=== PATIENT | female | born 1995 | race African-American/Black ===

== ENCOUNTER 2019-02-03 17:57 | Emergency (ER) | payer OTHER ==
[~2019-02-03] VITALS: Ht 162.6 cm; Wt 72.3 kg
[2019-02-03] MEDS ORDERED: NAPR250T4 PO (18:05)
--- NOTE | 2019-02-03 18:46 | REP ---
Right forearm two views : There is no fracture or dislocation. Mineralization and joint spaces are normal. There are no calcifications or foreign bodies. Impression: Negative right forearm . Electronically Signed by Benjamín Shultz MD 02/03/2019 06:38 P
[2019-02-03] MEDS ORDERED: [UNRECOGNIZED DRUG - CODE] XX (19:48)
[2019-02-03 19:55] VITALS: BP 118/67
== END 2019-02-03 19:57 | disposition home or self-care (01) ==
LOC: M ED 17:57
DX: M77.11 Lateral epicondylitis, right elbow (principal); Z79.899 Other long term (current) drug therapy

== ENCOUNTER 2019-05-29 09:04 | Emergency (ER) | payer OTHER ==
[~2019-05-29] VITALS: Ht 162.6 cm; Wt 68.2 kg
[~2019-05-29 09:04] MED LIST: NAPR250T4 PO; [UNRECOGNIZED DRUG - CODE] XX
[2019-05-29 09:51] LABS: BASO % 0.5 % (0.0-1.0); EOS # 0.1 10^3/uL (0.0-0.5); EOS % 0.8 % (0.0-3.0); HEMATOCRIT 36.1 % (36.0-47.0); HEMOGLOBIN 11.9 g/dl (12.0-15.5); LYMPH # 1.6 10^3/uL (1.5-5.0); LYMPH % 26.9 % (24.0-44.0); MEAN CORPUSCULAR HEMOGLOBIN 28.7 pg (27.0-33.0); MONO # 0.5 10^3/uL (0.0-0.8); MONO % 8.6 % (0.0-5.0); NEUTROPHILS # 3.7 10^3/uL (1.5-8.5); NEUTROPHILS % 62.9 % (36.0-66.0); PLATELET COUNT, AUTOMATED 280 10^3/uL (150-450); RED BLOOD COUNT 4.15 10^6/uL (4.00-5.40); WHITE BLOOD COUNT 5.9 10^3/uL (4.0-10.0)
[2019-05-29] MEDS ORDERED: ONDANSETRON 4 MG ORAL DISINTEGRATING TAB (Q0162 PER 1MG) PO ONE (10:00)
[2019-05-29 10:08] LABS: ALBUMIN 4.1 GM/DL (3.2-5.2); ALT/SGPT 16 U/L (12-78); BILIRUBIN,DIRECT 0.2 MG/DL (0.0-0.2); BILIRUBIN,TOTAL 0.5 MG/DL (0.2-1.0); BLOOD UREA NITROGEN 6 MG/DL (7-18); CALCIUM LEVEL 9.3 MG/DL (8.5-10.1); CARBON DIOXIDE LEVEL 27 MEQ/L (21-32); CHLORIDE LEVEL 105 MEQ/L (98-107); CREATININE FOR GFR 0.84 MG/DL (0.55-1.30); GLOMERULAR FILTRATION RATE > 60.0 (>60); GLUCOSE, FASTING 92 MG/DL (70-100); LIPASE 77 U/L (73-393); POTASSIUM SERUM 4.1 MEQ/L (3.5-5.1); SODIUM LEVEL 138 MEQ/L (136-145); TOTAL PROTEIN 7.5 GM/DL (6.4-8.2)
[2019-05-29] MEDS ORDERED: ONDA4TAB6 PO (11:45)
[2019-05-29 11:50] VITALS: BP 107/66
== END 2019-05-29 11:52 | disposition home or self-care (01) ==
LOC: M ED 09:04
DX: K52.9 Noninfective gastroenteritis and colitis, unspecified (principal); Z79.899 Other long term (current) drug therapy
CPT/HCPCS: 36415; 80048; 80076; 83690; 84702; 85025; 99284; Q0162

== ENCOUNTER 2019-09-18 07:02 | Emergency (ER) | payer OTHER ==
[~2019-09-18] VITALS: Ht 162.6 cm; Wt 72.0 kg
[~2019-09-18 07:02] MED LIST changes: +ONDA4TAB6 PO
[2019-09-18 08:44] VITALS: BP 110/72
--- NOTE | 2019-09-18 16:00 | REP ---
Right forearm: Two views. History: Pain after trauma. Findings: Two views of the right forearm compared with the February 03, 2019 prior study. Bones, joints, and soft tissues remain unremarkable. No fracture or subluxation seen. Impression: Negative radiographs of the right forearm. Electronically Signed by Johnie Steven MD 09/18/2019 07:57 A
== END 2019-09-18 08:48 | disposition home or self-care (01) ==
LOC: M ED 07:02